=== PATIENT | female | born 1955 | race African-American/Black ===

== ENCOUNTER 2019-08-09 19:01 | Emergency (ER) | payer OTHER ==
[~2019-08-09] VITALS: Ht 160 cm; Wt 62.6 kg
[~2019-08-09 19:01] MED LIST: LORTAB 5 MG/5001 TAB PO; PHENERGAN 25 MG25 MG PO
[2019-08-09 21:14] LABS: ABSOLUTE NEUTROPHILS 4.8 thou/uL (1.4-8.2); BASOPHILS 0.5 % (0.0-2.0); EOSINOPHILS 1.9 % (0.0-3.0); HEMATOCRIT 41.8 % (37.0-47.0); HEMOGLOBIN 13.8 gm/dL (12.0-15.0); LYMPHOCYTES 28.5 % (24.0-44.0); MCH 31.6 pg (26.0-34.0); MCV 95.7 fL (80.0-100.0); MONOCYTES 8.1 % (1.0-8.0); PLATELET COUNT 185 thou/uL (150-400); RBC 4.37 mil/uL (4.20-5.00); RDW 14.4 % (10.5-14.5); WBC 7.8 thou/uL (4.0-11.0)
[2019-08-09 21:17] LABS: ANION GAP 10 mmol/L (7-16); BUN 17 mg/dL (7-18); CALCIUM 9.5 mg/dL (8.5-10.1); CHLORIDE 102 mmol/L (98-107); CO2 28 mmol/L (21-32); CREATININE 0.8 mg/dL (0.6-1.0); GLUCOSE 89 mg/dL (74-106); POTASSIUM 3.2 mmol/L (3.5-5.1); SODIUM 140 mmol/L (136-145)
[2019-08-09 21:26] LABS: TROPONIN-I <0.06 ng/mL (<0.06)
[2019-08-09] MEDS ORDERED: COZAAR 25 MG TA25 M1 PO (22:00)
[2019-08-10 00:16] VITALS: BP 161/89
== END 2019-08-10 00:19 | disposition home or self-care (01) ==
LOC: ER 19:01
PROVIDERS: Emergency Medicine
DX: I10 Essential (primary) hypertension (principal); H53.8 Other visual disturbances